=== PATIENT | male | born 1965 | race Caucasian/White ===

== ENCOUNTER 2025-06-10 06:16 | Day surgery (SDC) | payer OTHER, SELFPAY ==
[2025-06-10 09:10] LABS: Glucose - Point of Care 123 mg/dl (70-99)
== END 2025-06-10 10:14 | disposition home or self-care (01) ==
LOC: GI 06:16
PROVIDERS: ATTENDING PHYSICIAN Surgery
DX: Z12.11 Encounter for screening for malignant neoplasm of colon (principal); K57.30 Diverticulosis of large intestine without perforation or abscess without bleeding; Z86.0100 Personal history of colon polyps, unspecified
CPT/HCPCS: G0105; 82962